=== PATIENT | female | born 1965 | race Hispanic/Latino ===

== ENCOUNTER → 2021-03-15 | Outpatient (CLI) | payer OTHER, MEDICARE ==
[~2021-03-15] VITALS: Ht 152.4 cm; Wt 104.3 kg
[~2021-03-15] MED LIST: REGADENOSON 0.4 MG/5 ML PF SYG IVP SCH
== END | disposition home or self-care (01) ==
LOC: EDUNIT# 02-17 08:00 → SHCH 09:22
PROVIDERS: ATTEND Internal Medicine Cardiovascular Disease
DX: R06.09 Other forms of dyspnea (principal); I20.9 Angina pectoris, unspecified; R53.83 Other fatigue
CPT/HCPCS: 78452; 93017; 96374; A9500 ×2; J2785

== ENCOUNTER 2021-04-11 15:50 | Observation (INO) | payer OTHER, MEDICARE ==
[~2021-04-11] VITALS: Ht 170.2 cm; Wt 111.1 kg
[2021-04-11 15:53] VITALS: BP 140/105
[2021-04-11 16:23] LABS: APPEARANCE,URINE Cloudy (CLEAR); BILIRUBIN,URINE Negative (NEGATIVE); COLOR,URINE Yellow (YELLOW); GLUCOSE, URINE (UA) Negative (NEGATIVE); KETONES,URINE Negative (NEGATIVE); LEUKOCYTE ESTERASE ,URINE Trace (NEGATIVE); NITRATE,URINE Negative (NEGATIVE); OCCULT BLOOD,URINE Negative (NEGATIVE); PH,URINE 5.5 (5.0-8.0); PROTEIN,URINE POS 2+ mg/dL (NEGATIVE)
[2021-04-11 16:26] LABS: BASOPHILS % (AUTO) 0.9 % (0.0-5.0); EOSINOPHILS % (AUTO) 2.5 % (0.0-8.0); HEMATOCRIT 40.3 % (36-48); LYMPHOCYTES % (AUTO) 30.3 % (21.0-51.0); MEAN CORPUSCULAR HEMOGLOBIN 25.5 pg (27.0-33.0); MEAN CORPUSCULAR HGB CONC 31.8 g/dL (32.0-36.0); MEAN CORPUSCULAR VOLUME 80.3 fL (79-99); MONOCYTES % (AUTO) 8.5 % (3.0-13.0); NEUTROPHILS % (AUTO) 57.5 % (40.0-77.0); PLATELET COUNT (AUTO) 258 K/uL (130-400); RED BLOOD CELL COUNT(AUTO) 5.02 MIL/uL (4.00-5.50); RED CELL DISTRIBUTION WIDTH 14.2 % (11.0-15.5); WHITE BLOOD COUNT (AUTO) 7.5 K/uL (4.8-10.8)
[2021-04-11] MEDS ORDERED: ASPIRIN 325MG TAB PO ONE (16:30)
[2021-04-11] MEDS ORDERED: NITROGLYCERIN 1GM OINT 1 INCH/1GM TD ONE (16:30)
[2021-04-11] MEDS ORDERED: ONDANSETRON 4MG INJ IVP ONE (16:30)
[2021-04-11 16:40] LABS: CREATININE 0.9 mg/dL (0.5-1.5); INR 1.03 (0.85-1.15); POTASSIUM 4.3 mmol/L (3.5-5.1); PROTHROMBIN TIME 11.2 SEC (9.6-11.6)
[2021-04-11 16:42] LABS: PARTIAL THROMBOPLASTIN TIME 26.8 SEC (26.3-35.5)
[2021-04-11 16:45] LABS: ALBUMIN 3.7 g/dL (3.5-5.0); BILIRUBIN,TOTAL 0.4 mg/dL (0.2-1.0); TOTAL PROTEIN, SERUM 8.2 g/dL (6.0-8.3)
[2021-04-11 17:02] LABS: B-TYPE NATRIURETIC PEPTIDE 31 pg/mL (0-100)
[2021-04-11 17:24] LABS: BACTERIA,URINE Few /HPF (None Seen); RBC,URINE 0-1 /HPF (0-1); SQUAMOUS EPITHELIAL CELL,UR Moderate /HPF (0-2)
[2021-04-11 17:26] LABS: MUCUS,URINE Rare LPF (None Seen)
[2021-04-11] MEDS ORDERED: LORAZEPAM 2 MG/ML 1 ML VIAL IVP ONE (18:00)
[2021-04-11 19:05] VITALS: BP 149/83
[2021-04-11 19:42] VITALS: BP 142/88
[2021-04-11] MEDS ORDERED: NITROGLYCERIN 0.4 MG SL TAB SL PRN (22:00)
[2021-04-11] MEDS ORDERED: IBUPROFEN 200 MG TAB PO PRN (22:00)
[2021-04-11] MEDS ORDERED: OLME20TA22 PO (22:08)
[2021-04-11] MEDS ORDERED: NITR0.4T50 SL (22:08)
[2021-04-11] MEDS ORDERED: PRAV40TA3 PO (22:08)
[2021-04-11] MEDS ORDERED: PREG100C55 PO (22:08)
[2021-04-11] MEDS ORDERED: ESOM40CA54 PO (22:08)
[2021-04-11] MEDS ORDERED: IBUP-2733 PO (22:08)
[2021-04-11] MEDS ORDERED: CYCL5TAB PO (22:08)
[2021-04-11] MEDS ORDERED: METO25TA6 PO (22:08)
[2021-04-11] MEDS ORDERED: ACETAMINOPHEN 325 MG TAB PO PRN (23:30)
[2021-04-11 23:45] LABS: CREATINE KINASE, TOTAL 72 U/L (21-232); MYOGLOBIN 37 ng/mL (10-92); TROPONIN I < 0.04 ng/mL (0.00-0.06)
[2021-04-12] VITALS (8 sets, daily range): BP systolic 113–156; BP diastolic 65–91
[2021-04-12] MEDS ORDERED: PANTOPRAZOLE 40 MG TAB DR PO SCH (07:53)
[2021-04-12 08:01] LABS: CREATINE KINASE, TOTAL 122 U/L (21-232); MYOGLOBIN 50 ng/mL (10-92); TROPONIN I < 0.04 ng/mL (0.00-0.06)
[2021-04-12] MEDS ORDERED: LOSARTAN 50 MG TABLET ONE (08:36)
[2021-04-12] MEDS ORDERED: PREGABALIN 25 MG CAP ONE (08:37)
[2021-04-12] MEDS ORDERED: METOPROLOL TARTRATE 25 MG TAB PO SCH (09:00)
[2021-04-12] MEDS ORDERED: PREGABALIN 100 MG CAPSULE PO SCH (09:00)
[2021-04-12] MEDS ORDERED: LOSARTAN 100 MG TABLET PO SCH (09:00)
[2021-04-12] MEDS ORDERED: ATORVASTATIN 40 MG TABLET PO SCH (21:00)
[2021-04-12] MEDS ORDERED: CYCLOBENZAPRINE HCL 10 MG TABLET PO SCH (21:00)
== END 2021-04-12 19:45 | disposition home or self-care (01) ==
LOC: EDH 15:50 → EDHIP 17:35
PROVIDERS: ADMIT Internal Medicine; ATTEND Internal Medicine
DX: I24.9 Acute ischemic heart disease, unspecified (principal); I25.10 Atherosclerotic heart disease of native coronary artery without angina pectoris; I10 Essential (primary) hypertension; E78.00 Pure hypercholesterolemia, unspecified; E11.9 Type 2 diabetes mellitus without complications; E78.5 Hyperlipidemia, unspecified; Z95.5 Presence of coronary angioplasty implant and graft
CPT/HCPCS: 36415 ×2; 71045; 80053; 81001; 82550 ×3; 83874 ×2; 83880; 84484 ×3; 85025; 85610; 85730; 93005; 96374; 96375; 99285; G0378 ×26; J2060; J2405

== ENCOUNTER 2021-11-23 12:30 | Emergency (ER) | payer MEDICARE ==
[~2021-11-23 12:30] MED LIST changes: +CYCL5TAB PO; +ESOM40CA54 PO; +IBUP-2733 PO; +METO25TA6 PO; +NITR0.4T50 SL; +OLME20TA22 PO; +PRAV40TA3 PO; +PREG100C55 PO; -REGADENOSON 0.4 MG/5 ML PF SYG IVP SCH
[2021-11-23 12:32] VITALS: BP_DIAS 92
[2021-11-23] MEDS ORDERED: KETOROLAC 30MG VIAL (30MG/ML) IVP ONE (13:00)
[2021-11-23] MEDS ORDERED: ONDANSETRON 4MG INJ IVP ONE (13:00)
[2021-11-23 13:35] LABS: BASOPHILS % (AUTO) 0.4 % (0.0-5.0); EOSINOPHILS % (AUTO) 0.8 % (0.0-8.0); HEMATOCRIT 36.7 % (36-48); LYMPHOCYTES % (AUTO) 13.2 % (21.0-51.0); MEAN CORPUSCULAR HEMOGLOBIN 26.1 pg (27.0-33.0); MEAN CORPUSCULAR HGB CONC 32.7 g/dL (32.0-36.0); MONOCYTES % (AUTO) 8.2 % (3.0-13.0); NEUTROPHILS % (AUTO) 77.1 % (40.0-77.0); PLATELET COUNT (AUTO) 244 K/uL (130-400); RED BLOOD CELL COUNT(AUTO) 4.59 MIL/uL (4.00-5.50); RED CELL DISTRIBUTION WIDTH 14.4 % (11.0-15.5); WHITE BLOOD COUNT (AUTO) 11.3 K/uL (4.8-10.8)
[2021-11-23 13:44] LABS: CREATININE 1.1 mg/dL (0.5-1.5); POTASSIUM 3.7 mmol/L (3.5-5.1)
[2021-11-23 13:48] LABS: ALBUMIN 3.3 g/dL (3.5-5.0); BILIRUBIN,TOTAL 0.4 mg/dL (0.2-1.0); TOTAL PROTEIN, SERUM 7.3 g/dL (6.0-8.3)
[2021-11-23] MEDS ORDERED: LEVO500T90 PO (14:15)
[2021-11-23] MEDS ORDERED: METR375C2 PO (14:15)
[2021-11-23] MEDS ORDERED: DICY20TA2 PO (14:15)
[2021-11-23] MEDS ORDERED: ONDA4TAB10 PO (14:15)
[2021-11-23 14:22] LABS: APPEARANCE,URINE Clear (CLEAR); BILIRUBIN,URINE Negative (NEGATIVE); COLOR,URINE Yellow (YELLOW); GLUCOSE, URINE (UA) Negative (NEGATIVE); KETONES,URINE Negative (NEGATIVE); LEUKOCYTE ESTERASE ,URINE Negative (NEGATIVE); NITRATE,URINE Negative (NEGATIVE); OCCULT BLOOD,URINE Negative (NEGATIVE); PH,URINE 6.5 (5.0-8.0); PROTEIN,URINE Trace mg/dL (NEGATIVE); UROBILINOGEN,URINE 0.2 mg/dL (0.2-1.0)
[2021-11-23] MEDS ORDERED: METRONIDAZOLE 500 MG TABLET PO SCH (14:30)
[2021-11-23] MEDS ORDERED: LEVOFLOXACIN 500 MG TABLET PO SCH (14:30)
[2021-11-23 14:43] VITALS: BP_SYST 87
[2021-11-23 14:46] LABS: BACTERIA,URINE Rare /HPF (None Seen); MUCUS,URINE Rare LPF (None Seen); RBC,URINE 0-1 /HPF (0-1); SQUAMOUS EPITHELIAL CELL,UR Few /HPF (0-2); WBC,URINE 0-1 /HPF (0-1)
== END 2021-11-23 15:14 | disposition home or self-care (01) ==
LOC: EDH 12:30
DX: K57.32 Diverticulitis of large intestine without perforation or abscess without bleeding (principal); I10 Essential (primary) hypertension; E11.9 Type 2 diabetes mellitus without complications; E66.9 Obesity, unspecified; Z88.6 Allergy status to analgesic agent; Z79.899 Other long term (current) drug therapy
CPT/HCPCS: 36415; 71045; 74176; 80053; 81001; 83605; 83690; 84484; 85025; 96374; 96375; 99285; J1885; J2405

== ENCOUNTER 2022-10-11 17:38 | Emergency (ER) | payer OTHER, MEDICARE ==
[~2022-10-11] VITALS: Ht 167.6 cm; Wt 104.3 kg
[~2022-10-11 17:38] MED LIST changes: +DICY20TA2 PO; +LEVO-70 PO; +METR375C2 PO; +ONDA4TAB10 PO
[2022-10-11 20:01] VITALS: BP 156/54
[2022-10-11] MEDS ORDERED: IBUPROFEN 600 MG TABLET PO ONE (20:30)
== END 2022-10-11 21:02 | disposition home or self-care (01) ==
LOC: EDH 17:38
DX: S16.1XXA Strain of muscle, fascia and tendon at neck level, initial encounter (principal); S39.012A Strain of muscle, fascia and tendon of lower back, initial encounter; S00.93XA Contusion of unspecified part of head, initial encounter; M47.816 Spondylosis without myelopathy or radiculopathy, lumbar region; M47.812 Spondylosis without myelopathy or radiculopathy, cervical region; W07.XXXA Fall from chair, initial encounter; Y93.89 Activity, other specified; Y92.89 Other specified places as the place of occurrence of the external cause; Y99.8 Other external cause status
CPT/HCPCS: 70450; 72125; 72131